=== PATIENT | male | born 1935 | race Caucasian/White ===

== ENCOUNTER → 2017-05-09 | Outpatient (CLI) | payer MEDICARE | END | disposition home or self-care (01) | LOC: PCVCCLINIC 11:40 | DX: I35.0 Nonrheumatic aortic (valve) stenosis (principal); E78.00 Pure hypercholesterolemia, unspecified; I87.2 Venous insufficiency (chronic) (peripheral); I10 Essential (primary) hypertension; R09.89 Other specified symptoms and signs involving the circulatory and respiratory systems; Z86.711 Personal history of pulmonary embolism; Z79.899 Other long term (current) drug therapy; Z79.82 Long term (current) use of aspirin | CPT/HCPCS: 93005; G0463 ==

== ENCOUNTER → 2017-05-22 | Outpatient (CLI) | payer MEDICARE | END | disposition home or self-care (01) | LOC: PCVCIMAG 12:34 | DX: I65.23 Occlusion and stenosis of bilateral carotid arteries (principal) | CPT/HCPCS: 93306; 93880 ==

== ENCOUNTER → 2017-05-23 | Outpatient (CLI) | payer MEDICARE ==
[~2017-05-23] MED LIST: REGADENOSON 0.4 MG/5 ML DISP.SYRIN. IV
== END | disposition home or self-care (01) ==
LOC: PCVCIMAG 14:25
DX: R07.9 Chest pain, unspecified (principal); R06.00 Dyspnea, unspecified; I10 Essential (primary) hypertension; E78.5 Hyperlipidemia, unspecified
CPT/HCPCS: 78452; 93017; A9500; J2785

== ENCOUNTER → 2017-12-11 | Outpatient (CLI) | payer MEDICARE | END | disposition home or self-care (01) | LOC: PCVCCLINIC 15:53 | PROVIDERS: ATTEND Internal Medicine Cardiovascular Disease | DX: I35.0 Nonrheumatic aortic (valve) stenosis (principal); I77.9 Disorder of arteries and arterioles, unspecified; E78.00 Pure hypercholesterolemia, unspecified; I10 Essential (primary) hypertension; I87.2 Venous insufficiency (chronic) (peripheral); Z86.711 Personal history of pulmonary embolism; Z86.718 Personal history of other venous thrombosis and embolism; Z79.01 Long term (current) use of anticoagulants; Z79.899 Other long term (current) drug therapy | CPT/HCPCS: 80061; 93005; G0463 ==

== ENCOUNTER → 2018-06-28 | Outpatient (CLI) | payer MEDICARE ==
--- NOTE | 2018-07-01 11:40 | PCVCIMAG ---
APPROVED REPORT Study performed: 06/28/2018 14:59:49 EXAM: Comprehensive 2D, Doppler, and color-flow Echocardiogram Patient Location: Echo lab Room #: 2Status: routine BSA: 1.89 HR: 58 bpmBP: 124/68 mmHg Rhythm: NSR Other Information Study Quality: Good Risk Factors: Cardiac Risk Factors: HTN, Hyperlipidemia Indications Aortic Valve Disease Hypertension/HDD 2D Dimensions IVSd: 11.34 (7-11mm)LVOT Diam: 21.42 (18-24mm) LVDd: 42.08 mm PWd: 10.28 (7-11mm)Ascending Ao: 30.83 (22-36mm) LVDs: 18.71 (25-40mm) Left Atrium: 36.76 (27-40mm) Aortic Root: 30.78 mm LV Single Plane 4CH: 63.01 % LV Single Plane 2CH: 68.31 % Biplane EF: 65.1 % Volumes Left Atrial Volume (Systole) Single Plane 4CH: 57.84 mLSingle Plane 2CH: 62.24 mL Biplane LA Volume: 60.00 mLLA ESV Index: 32.00 mL/m2 Aortic Valve AoV Peak Cecil.: 4.71 m/s AO Peak Gr.: 93.48 mmHgLVOT Max P.72 mmHg AO Mean Gr.: 55.86 mmHgLVOT Mean P.63 mmHg AO V2 Mean: 3.62 m/sLVOT Max V: 1.19 m/s AO V2 VTI: 107.68 cmLVOT Mean V: 0.94 m/s SAY (VTI): 0.98 [id number] V1 VTI: 29.19 cm SAY Vmax: 0.91 cm2 SV (LVOT): 105.08 mL Mitral Valve MV Peak Gr.: 7.08 mmHg MV Mean Gr.: 2.04 mmHgE/A Ratio: 0.7 MV Decel. Time: 291.36 ms MV E Max Cecil.: 0.88 m/s MV A Cecil.: 1.25 m/s MV Max Cecil.: 1.33 m/s MV Mean Cecil.: 0.62 m/s MV VTI: 445.39 mm MVA VTI: 235.94 mm2 TDI E/Lateral E': 22.00E/Medial E': 22.00 Medial E' Cecil.: 0.04 m/s Lateral E' Cecil.: 0.04 m/s Pulmonary Valve PV Peak Cecil.: 1.27 m/sPV Peak Gr.: 6.41 mmHg Pulmonary Vein P Vein S: 0.59 m/sP Vein A: 0.42 m/s P Vein D: 0.43 m/sP Vein A Dur.: 107.3 msec P Vein S/D Ratio: 1.37 Tricuspid Valve TR Peak Cecil.: 2.63 m/s TR Peak Gr.: 27.66 mmHg TV Vmax: 0.46 m/sPA Pressure: 35.00 mmHg Left Ventricle The left ventricle is normal size. There is normal LV segmental wall motion. Mild concentric left ventricular hypertrophy. Left ventricular systolic function is normal. The left ventricular ejection fraction is within the normal range. LVEF is 65%. Grade I - abnormal relaxation pattern. Left atrial pressure is elevated. Right Ventricle The right ventricle is normal size. The right ventricular systolic function is normal. Atria The left atrium size is normal. The right atrium size is normal. Aortic Valve Severe aortic valve sclerosis. Aortic valve is trileaflet. No aortic regurgitation is present. Severe aortic stenosis. Highest mean aortic valve gradient is 56_mmHg. Peak aortic valve gradient is 89_mmHg. Calculated SAY by the continuity equation is 0.9 cm2. Mitral Valve Mild mitral annular calcification. There is no mitral valve regurgitation noted. No evidence of mitral valve stenosis. Tricuspid Valve The tricuspid valve is normal in structure. Mild pulmonary hypertension. Mild tricuspid regurgitation with a PA pressure of 35 mmHg. Pulmonic Valve The pulmonary valve is normal in structure. There is no pulmonic valvular regurgitation. Great Vessels The aortic root is normal in size. The ascending aorta is normal in size. Aortic arch is normal in caliber. IVC is normal in size and collapses >50% with inspiration. Pericardium There is no pericardial effusion. There is no pleural effusion. <Conclusion> The left ventricle is normal size. LVEF is 65%. Grade I - abnormal relaxation pattern. Left atrial pressure is elevated. The right ventricle is normal size. The right ventricular systolic function is normal. The left atrium size is normal. Severe aortic valve sclerosis. Aortic valve is trileaflet. Severe aortic stenosis. Highest mean aortic valve gradient is 56_mmHg. Peak aortic valve gradient is 89_mmHg. Calculated SAY by the continuity equation is 0.9 cm2. Mild mitral annular calcification. There is no mitral valve regurgitation noted. Mild pulmonary hypertension. Mild tricuspid regurgitation with a PA pressure of 35 mmHg. The aortic root is normal in size. There is no pericardial effusion.
== END | disposition home or self-care (01) ==
LOC: PCVCIMAG 14:31
PROVIDERS: ATTEND Internal Medicine Cardiovascular Disease
DX: I08.1 Rheumatic disorders of both mitral and tricuspid valves (principal); I10 Essential (primary) hypertension; I27.20 Pulmonary hypertension, unspecified; E78.00 Pure hypercholesterolemia, unspecified; I65.23 Occlusion and stenosis of bilateral carotid arteries; M81.0 Age-related osteoporosis without current pathological fracture; Z79.82 Long term (current) use of aspirin
CPT/HCPCS: 93005; 93306; G0463